=== PATIENT | female | born 1975 | race African-American/Black ===

== ENCOUNTER → 2017-03-09 | Outpatient (CLI) | payer BC ==
[2016-05-31 12:36] VITALS: BP 143/89
--- NOTE | 2017-03-09 13:07 | RAD ---
HISTORY: Nontraumatic left knee pain Study: Left knee three views Comparison: None Findings: No evidence for acute cortical disruption or dislocation. The medial and lateral tibiofemoral asher rtments appear unremarkable without loss of significant joint space. The lateral radiograph fails t o demonstrate significant joint effusion. Patellofemoral compartment is normal in its appearance. IMPRESSION: 1. Negative exam. Reported By:
== END ==
LOC: RAD 10:00
PROVIDERS: ATTEND Nurse Practitioner Family
DX: M25.562 Pain in left knee (principal)
CPT/HCPCS: 73560

== ENCOUNTER → 2017-03-10 | Outpatient (CLI) | payer BC ==
[2016-05-31 12:36] VITALS: BP 143/89
== END ==
LOC: RAD 13:27
PROVIDERS: ATTEND Nurse Practitioner Family
DX: R92.8 Other abnormal and inconclusive findings on diagnostic imaging of breast (principal)
CPT/HCPCS: 76642

== ENCOUNTER 2017-05-21 19:21 | Emergency (ER) | payer BC ==
[2017-05-21 19:35] VITALS: BP 136/86; BMI 28.9
[2017-05-21 19:57] LABS: BILIRUBIN,URINE NEGATIVE (NEGATIVE); BLOOD/HEMOGLOBIN,URINE 3+ (NEGATIVE); GLUCOSE, URINE NEGATIVE (NEGATIVE); KETONES,URINE NEGATIVE (NEGATIVE); LEUKOCYTE ESTERASE ,URINE NEGATIVE (NEGATIVE); NITRITES,URINE NEGATIVE (NEGATIVE); PROTEIN,URINE NEGATIVE (NEGATIVE); UROBILINOGEN,URINE 1+ (NORMAL)
[2017-05-21] MEDS ORDERED: ZOFRAN INJ 4 MG VIAL IVP ONE ×2 (20:03→21:51)
[2017-05-21] MEDS ORDERED: TORADOL 30 MG VIAL IVP ONE (20:04)
--- NOTE | 2017-05-21 20:04 | DR.GENAD ---
HPI - PCP Primary Care Physician: Mohsen FRANCIS - HPI Comment HPI Comment: PAIN ASSOCIATED WITH NAUSE. NO FEVER OR DYSURIA. - Complaint/Symptoms Chief Complaint Doctors Comments: PAIN RIGHT ABDOMEN AND RIGHT FLANK AREA THAT IS GETTING WORSE. Chief Complaint:: HURTING IN RIGHT SIDE OF ABDOMEN INTO BACK AND DOWN RIGHT HIP SINCE YESTERDAY Self Treatment fo Chief Complaint: SOME BACK MEDICINE AND TYLENOL THIS AM AND SOME EXCEDERIN AROUND LUNCH DID NOT HELP - Nurses notes reviewed Nurses Notes Review: Yes - Source History Provided: Patient - Mode of Arrival Mode of Arrival: Ambulatory - Timing Onset of Chief Complaint: 05/20/17 Came on: Suddenly - Duration Duration: Constant Duration: Days - Severity Severity: Moderate PMH - PMH Past Medical History: Yes Past Medical History: Anxiety, Asthma, Depression, Headaches, Hypertension Past Medical History Comment: CYST ON RIGHT KIDNEY DIAGNOSED 2 YEARS AGO Past Surgical History: Yes Surgical History: Hysterectomy, Ortho Surgery Past Surgical History Comment: BACK SURGERY TIMES 2 - Family History History of Family Medical Conditions: Yes Family Medical History: Diabetes Mellitus, Cancer, [place], Heart Failure, Sudden Cardiac , Hypertension Family Medical History Comment: STROKES, SEIZURES - Social History Does patient currently use any type of tobacco product: No Have you used tobacco products in the last 12 months: No Type of Tobacco Use: None Does any household member use tobacco: No Alcohol Use: Occasionally Do you use any recreational Drugs:: No Lives With: Significant Other Lives Where: Home - infectious screening In the last 2 months have you had wt loss of >10#?: NO Have you had fever, night sweats or hemotysis?: No Have you traveled outside the country in the last 6 months?: No Isolation: Standard ROS - Review of Systems Constitutional: negative: Chills, Fever Eyes: No Symptoms Reported ENTM: No Symptoms Reported Respiratoy: No Symptoms Reported Cardiovascular: No Symptoms Reported Gastrointestinal/Abdominal: Abdominal Pain, Nausea Genitourinary: No Symptoms Reported. negative: Dysuria, Frequency, Hematuria Neurological: No Symptoms Reported Musculoskeletal: Back Pain, Other (RIGHT FLANK PAIN.) Integumentary: No Symptoms Reported Hematologic/Lymphatic: No Symptoms Reported Endocrine: No Symptoms Reported All Other Systems: Reviewed and Negative PE - Vital Signs Vitals: Temperature 98.7 F Pulse Rate 80 Respiratory Rate 16 Blood Pressure 136/86 O2 Sat by Pulse Oximetry 99 - General Limitations: No Limitations General Appearance: Alert - Head Head Exam: Normal Inspection - Eyes Eye exam: Normal Appearance - ENT ENT Exam: Normal External Ear Exam External Ear Exam: Normal External Inspection TM/Canal Exam: Bilateral Normal Nose Exam: Normal Nose Exam Mouth Exam: Normal Inspection Throat Exam: Normal Inspection - Neck Neck Exam: Trachea Midline - Chest Chest Inspection: Symmetric Chest Wall Rise - Respiratory Respiratory Exam: Normal Lung Sounds Bilat Respiratory Exam: Bilateral Clear to Auscultation - Cardiovascular Cardiovascular Exam: Regular Rate, Normal Rhythm, Normal Heart Sounds - Abdominal Exam Abdominal Exam: Normal Bowel Sounds, Soft, Tenderness Abdominal Tenderness: RUQ, RLQ, Moderate - Extremities Extremities Exam: Normal Inspection - Back Back Exam: (R) CVA Tenderness - Neurologic Neurological Exam: Alert, Oriented X3 - Psychiatric Psychiatric Exam: Normal Affect - Skin Skin Exam: Normal Color MDM - Additional Information Additional Information Obtained From: Family - Differential Diagnosis Differential Diagnosis: ABDOMINAL PAIN, RIGHT FLANK PAIN, UTI, PYELONEPHRITIS, KIDNEY STONE Course - Treatment Treatment: SEE ORDERS. - Education/Counseling Education/Counseling: Patient, Family, Education Educated On: Treatment, Diagnosis, Needs for Follow Up ROR - Labs Reviewed Laboratory Results Reviewed?: Yes Result Diagrams: 05/21/17 20:10 05/21/17 20:10 Laboratory: WBC 6.9 X10^3/uL (3.6-10.0) 05/21/17 20:10 RBC 4.57 X10^6/uL (3.5-5.4) 05/21/17 20:10 Hgb 13.0 g/dL (12.0-16.0) 05/21/17 20:10 Hct 38.7 % (36.0-47.0) 05/21/17 20:10 MCV 84.7 fL (80.0-100.0) 05/21/17 20:10 MCH 28.5 pg (27.0-34.0) 05/21/17 20:10 MCHC 33.7 g/dL (33.0-35.0) 05/21/17 20:10 RDW 13.6 % (11.6-16.5) 05/21/17 20:10 Plt Count 296 X10^3/uL (150.0-450.0) 05/21/17 20:10 MPV 8.4 fL (7.4-11.0) 05/21/17 20:10 Neut % 50.9 % (42.0-75.0) 05/21/17 20:10 Lymph % 39.9 % (21.0-51.0) 05/21/17 20:10 [place] % 7.1 % (0.0-13.0) 05/21/17 20:10 Eos % 0.7 % (0.9-2.9) L 05/21/17 20:10 Baso % 1.4 % (0.2-1.0) H 05/21/17 20:10 Neut # 3.5 x10^3/uL (2.2-4.8) 05/21/17 20:10 Lymph # 2.8 X10^3/uL (1.3-2.9) 05/21/17 20:10 [place] # 0.5 x10^3/uL (0.3-0.8) 05/21/17 20:10 Eos # 0.0 x10^3/uL (0.0-0.2) 05/21/17 20:10 Baso # 0.1 X10^3/uL (0.0-0.1) 05/21/17 20:10 Absolute Nucleated RBC 0.0 /100WBC 05/21/17 20:10 Sodium 137 mmol/L (136-145) 05/21/17 20:10 Corrected Sodium TNP 05/21/17 20:10 Potassium 4.1 mmol/L (3.5-5.1) 05/21/17 20:10 Chloride 100 mmol/L (98-107) 05/21/17 20:10 Carbon Dioxide 31.9 mmol/L (21-32) 05/21/17 20:10 BUN 11 mg/dL (7-18) 05/21/17 20:10 Creatinine 0.88 mg/dL (0.55-1.02) 05/21/17 20:10 Est GFR (MDRD) Af Amer > 60 (>60) 05/21/17 20:10 Est GFR (MDRD) Non-Af > 60 (>60) 05/21/17 20:10 Glucose 90 mg/dL (65-99) 05/21/17 20:10 Calcium 9.0 mg/dL (8.5-10.1) 05/21/17 20:10 Corrected Calcium TNP 05/21/17 20:10 Total Bilirubin 0.30 mg/dL (0.2-1.0) 05/21/17 20:10 AST 22 Units/L (15-37) 05/21/17 20:10 ALT 22 Units/L (12-78) 05/21/17 20:10 Alkaline Phosphatase 40 Units/L (46-116) L 05/21/17 20:10 Total Protein 7.8 g/dL (6.4-8.2) 05/21/17 20:10 Albumin 3.9 g/dL (3.4-5.0) 05/21/17 20:10 Globulin 3.9 g/dL (2.5-4.5) 05/21/17 20:10 Albumin/Globulin Ratio 1.0 Ratio (1.1-2.1) L 05/21/17 20:10 Amylase 61 Units/L (25-115) 05/21/17 20:10 Lipase 133 Units/L (73-393) 05/21/17 20:10 Specimen Type Clean catch urine 05/21/17 19:48 Urine Color Yellow (YELLOW) 05/21/17 19:48 Urine Appearance Clear (CLEAR) 05/21/17 19:48 Urine pH 7.0 (5.0 - 8.0) 05/21/17 19:48 Ur Specific [place] 1.010 (1.000-1.030) 05/21/17 19:48 Urine Protein Negative (NEGATIVE) 05/21/17 19:48 Urine Glucose (UA) Negative (NEGATIVE) 05/21/17 19:48 Urine Ketones Negative (NEGATIVE) 05/21/17 19:48 Urine Occult Blood 3+ (NEGATIVE) 05/21/17 19:48 Urine Nitrite Negative (NEGATIVE) 05/21/17 19:48 Urine Bilirubin Negative (NEGATIVE) 05/21/17 19:48 Urine Urobilinogen 1+ (NORMAL) 05/21/17 19:48 Ur Leukocyte Esterase Negative (NEGATIVE) 05/21/17 19:48 Urine RBC 10-15 /HPF (NEGATIVE) 05/21/17 19:48 Urine WBC 0-3 /HPF (NEGATIVE) 05/21/17 19:48 Ur Squamous Epith Cells Rare /HPF (NEGATIVE) 05/21/17 19:48 Urine Bacteria Negative /HPF (NEGATIVE) 05/21/17 19:48 Ur Culture Indicated? No/not indicated 05/21/17 19:48 - XRAY XRAY Interpreted by: Radiologist XRAY Findings: REPORT DISCUSS WITH PATIENT. - Diagnosis Discharge Problem: Right flank pain, Musculoskeletal pain Abdominal pain Qualifiers: Abdominal location: right upper quadrant Qualified Code(s): R10.11 - Right upper quadrant pain - Discharge Plan Disposition: 01 HOME, SELF-CARE Condition: Stable Prescriptions: Acetaminophen/Codeine Tab [TYLENOL w/CODEINE #3 (300 MG/30 MG) *] 1 tab PO Q4- 6H PRN #15 tab PRN Reason: Pain Cyclobenzaprine HCl [FLEXERIL 10 MG *] 10 mg PO TID #20 tab Ibuprofen [MOTRIN TAB 800 MG *] 800 mg PO Q8H PRN #20 tab PRN Reason: Pain/Inflammation Ondansetron HCl [Zofran Tab 4 mg] 4 mg PO Q8H PRN #12 tab PRN Reason: Nausea/Vomiting - Follow ups/Referrals Follow ups/Referrals: MORRIS FRANCIS [Primary Care Provider] - 05/23/17 - Instructions Instructions: Abdominal Pain, Adult, [id number], Musculoskeletal Pain Additional Instructions: RETURN TO ED IF WORSE.
[2017-05-21 20:10] LABS: APPEARANCE,URINE CLEAR (CLEAR); COLOR,URINE YELLOW (YELLOW)
[2017-05-21 20:11] LABS: BACTERIA,URINE NEGATIVE /HPF (NEGATIVE); SQUAMOUS EPITHELIAL CELL,UR RARE /HPF (NEGATIVE)
[2017-05-21 20:18] LABS: BASOPHILS # (AUTO) 0.1 X10^3/uL (0.0-0.1); BASOPHILS % (AUTO) 1.4 % (0.2-1.0); EOSINOPHILS % (AUTO) 0.7 % (0.9-2.9); HEMATOCRIT 38.7 % (36.0-47.0); LYMPHOCYTES # (AUTO) 2.8 X10^3/uL (1.3-2.9); LYMPHOCYTES % (AUTO) 39.9 % (21.0-51.0); MEAN CORPUSCULAR HEMOGLOBIN 28.5 pg (27.0-34.0); MEAN CORPUSCULAR HGB CONC 33.7 g/dL (33.0-35.0); MEAN CORPUSCULAR VOLUME 84.7 fL (80.0-100.0); MEAN PLATELET VOLUME 8.4 fL (7.4-11.0); MONOCYTES # (AUTO) 0.5 x10^3/uL (0.3-0.8); MONOCYTES % (AUTO) 7.1 % (0.0-13.0); NEUTROPHILS # (AUTO) 3.5 x10^3/uL (2.2-4.8); NEUTROPHILS % (AUTO) 50.9 % (42.0-75.0); PLATELET COUNT 296 X10^3/uL (150.0-450.0); RED BLOOD COUNT 4.57 X10^6/uL (3.5-5.4); RED CELL DISTRIBUTION WIDTH 13.6 % (11.6-16.5); WHITE BLOOD COUNT 6.9 X10^3/uL (3.6-10.0)
[2017-05-21 20:34] LABS: ALANINE AMINOTRANSFERASE 22 Units/L (12-78); ALBUMIN 3.9 g/dL (3.4-5.0); ALKALINE PHOSPHATASE 40 Units/L (46-116); AMYLASE 61 Units/L (25-115); ASPARTATE AMINO TRANSFERASE 22 Units/L (15-37); BLOOD UREA NITROGEN 11 mg/dL (7-18); CARBON DIOXIDE 31.9 mmol/L (21-32); CHLORIDE 100 mmol/L (98-107); CREATININE 0.88 mg/dL (0.55-1.02); GLUCOSE 90 mg/dL (65-99); LIPASE 133 Units/L (73-393); SODIUM 137 mmol/L (136-145); TOTAL PROTEIN 7.8 g/dL (6.4-8.2); eGFR BLACK RACES > 60 (>60); eGFR NON BLACK RACES > 60 (>60)
[2017-05-21] MEDS ORDERED: ZOFRAN INJ 4 MG VIAL ONE ×2 (20:44→21:51)
[2017-05-21] MEDS ORDERED: TORADOL 30 MG VIAL ONE (20:44)
--- NOTE | 2017-05-21 21:12 | CT ---
CT abdomen and pelvis without contrast Indication: Right flank pain Comparison: None available Technique: Multiple axial images of the abdomen and pelvis were obtained from the lung bases to the pubic symphy sis without the administration of IV contrast. Radiation dose reduction techniques were performed utilizing adjustment for MA/kVP based on patient body size. Findings: With the lung bases are clear. Given the limitations of a noncontrast examination no abnormality iden tified within the liver, gallbladder, bile ducts, spleen, pancreas and adrenal glands. Neither kidney demonstrates evidence of nephrolithiasis or mass. There is no dilatation of either ureter or suspici on for ureteral stone. Multiple pelvic phleboliths are noted. The urinary bladder is normal. Upper GI tract demonstrates no evidence of mass or obstruction. No pelvic or adnexal mass. The rectum and col on are unremarkable aside for mild increased fecal material consistent with constipation. The appendi x is normal. No pelvic free fluid or adenopathy. Abdominal aorta is normal in caliber. Review of bone windows demonstrates no acute osseous abnormality. Previous posterior fixation of L4-5 demonstrates no evidence of hardware loosening or failure. Impression: Given the limitations of a noncontrast examination no acute inflammatory process identifi ed within the abdomen or pelvis. Mild constipation. Reported By:
== END 2017-05-21 22:10 | disposition home or self-care (01) ==
LOC: ER 19:21
DX: R10.11 Right upper quadrant pain (principal); M79.1 Myalgia
CPT/HCPCS: 36415; 74176; 80053; 81001; 82150; 83690; 85025; 96365; 96374; 96375; 99283; A4222; J1885; J2405